=== PATIENT | male | born 1935 | race African-American/Black ===

== ENCOUNTER 2017-02-25 19:40 | Inpatient (IN) | payer OTHER ==
[~2017-02-25] VITALS: Ht 185.4 cm; Wt 72.6 kg
[2017-02-25] MEDS ORDERED: ONDANSETRON HCL 4MG/2ML VIAL IV STA (21:02)
[2017-02-25] MEDS ORDERED: ASPIRIN 81MG TABLET PO ONE (21:15)
[2017-02-25 21:37] LABS: CHLORIDE 107 mEq/L (98-107)
[2017-02-25 21:39] LABS: INR 3.5; PROTHROMBIN TIME 36.2 sec (9.4-11.6)
[2017-02-25 21:40] LABS: BASOPHILS % 0.3 % (0.0-2.0); EOSINOPHILS % 0.1 % (0.0-5.0); HEMATOCRIT. 27.4 % (42.0-52.0); HEMOGLOBIN. 9.2 g/dL (14.0-18.0); LYMPHOCYTES % 7.7 % (20.0-50.0); MEAN PLATELET VOLUME 9.7 fl (7.4-10.4); NEUTROPHILS % 85.9 % (40.0-76.0); PLATELET 81 x1000/uL (130-400); RED BLOOD CELL COUNT 2.71 mill/uL (4.7-6.1); RED CELL DISTRIBUTION WIDTH 16.7 % (11.6-14.6)
[2017-02-25 21:48] LABS: CARBON DIOXIDE 26 mEq/L (21-32); ETHANOL BLOOD < 10 mg/dL; TROPONIN I 0.04 ng/mL (0.00-0.04)
[2017-02-25] MEDS ORDERED: SODIUM CHLORIDE 0.9% 1,000 ML IV NR (22:53)
[2017-02-25 23:56] LABS: CLARITY URINE CLOUDY (CLEAR); COLOR URINE YELLOW (YELLOW); GLUCOSE URINE 2+ (NEGATIVE); KETONES URINE NEGATIVE (NEGATIVE); LEUKOCYTE ESTERASE URINE NEGATIVE (NEGATIVE); NITRITE URINE NEGATIVE (NEGATIVE); OCCULT BLOOD URINE 1+ (NEGATIVE); PROTEIN URINE 3+ (NEGATIVE); SPECIFIC GRAVITY URINE 1.015 (1.005-1.030)
[2017-02-26 00:19] LABS: *AMPHETAMINES SCREEN URINE NEGATIVE (NEGATIVE); *BARBITURATES SCREEN URINE NEGATIVE (NEGATIVE); *BENZODIAZEPINES SCREEN URINE PRESUMTIVE POSITIVE (NEGATIVE); *COCAINE SCREEN URINE NEGATIVE (NEGATIVE); CANNABINOID URINE SCREEN NEGATIVE (NEGATIVE); METHADONE URINE SCREEN NEGATIVE (NEGATIVE); OPIATES URINE SCREEN NEGATIVE (NEGATIVE); PHENCYCLIDINE URINE SCREEN NEGATIVE (NEGATIVE)
[2017-02-26] MEDS ORDERED: LEVOFLOXACIN 750MG PREMIX 150 ML IV NR (00:30)
[2017-02-26] MEDS ORDERED: SODIUM CHLORIDE 0.9% 1000ML BAG (SEPSIS BOLUS) IV ONE (00:30)
[2017-02-26 01:50] VITALS: BP 109/72
[2017-02-26] MEDS ORDERED: ONDANSETRON HCL 4MG/2ML VIAL IV PRN (04:15)
[2017-02-26] MEDS ORDERED: CLONIDINE 0.1MG TABLET PO PRN (04:15)
[2017-02-26] MEDS ORDERED: NA PHOS,M-B/NA PHOS,DI-BA ENEMA 118ML PR PRN (04:15)
[2017-02-26] MEDS ORDERED: DIPHENHYDRAMINE 50MG/ML VIAL IV PRN (04:15)
[2017-02-26] MEDS ORDERED: MAGNESIUM/ALUMINUM HYDROXIDE/SIMETHICONE 30ML UDC PO PRN (04:15)
[2017-02-26] MEDS ORDERED: GUAIFENESIN 200MG/10ML SUGAR FREE UDC PO PRN (04:15)
[2017-02-26] MEDS ORDERED: DOCUSATE SODIUM 100MG CAPSULE PO PRN (04:15)
[2017-02-26] MEDS ORDERED: LORAZEPAM 0.5MG TABLET PO PRN (04:15)
[2017-02-26] MEDS ORDERED: IPRATROPIUM/ALBUTEROL 0.5-3(2.5)MG/3ML NEB INH PRN (04:15)
[2017-02-26] MEDS ORDERED: ACETAMINOPHEN 325MG TABLET PO PRN (04:15)
[2017-02-26 04:32] VITALS: BP 125/74
[2017-02-26] MEDS: SODIUM CHLORIDE 0.45% 1,000 ML IV SCH ×2 (05:38→18:21)
[2017-02-26] MEDS ORDERED: DEXTROSE 50% WATER 50ML SYRINGE IV PRN (06:00)
[2017-02-26] MEDS: INSULIN LISPRO 100 UNITS/ML SUBCUT SCH ×4 (07:50→21:00)
[2017-02-26 08:00] VITALS: BP 149/68
[2017-02-26] MEDS: BLOOD SUGAR DIAGNOSTIC STRIP TEST SCH ×4 (08:49→21:00)
[2017-02-26] MEDS: ASPIRIN 81MG EC TABLET PO SCH (08:49)
[2017-02-26 09:08] LABS: TROPONIN I 0.05 ng/mL (0.00-0.04)
[2017-02-26 12:00] VITALS: BP 123/70
[2017-02-26] MEDS ORDERED: OMEP20TA2 PO (13:16)
[2017-02-26] MEDS ORDERED: AMIO100T4 PO (13:16)
[2017-02-26] MEDS ORDERED: MOME13HF INH (13:16)
[2017-02-26] MEDS ORDERED: FURO40TA5 PO (13:16)
[2017-02-26] MEDS ORDERED: FLUR30CA13 PO (13:16)
[2017-02-26] MEDS ORDERED: WARF5TAB73 PO (13:16)
[2017-02-26] MEDS ORDERED: BISO5TAB13 PO (13:16)
[2017-02-26] MEDS ORDERED: HYDR-4134 PO (13:16)
[2017-02-26] MEDS ORDERED: LOSA25TA12 PO (13:16)
[2017-02-26] MEDS ORDERED: METF500T4 PO (13:16)
[2017-02-26] MEDS ORDERED: METF10002 PO (13:16)
[2017-02-26] MEDS ORDERED: TERA2CAP4 PO (13:16)
[2017-02-26] MEDS ORDERED: SIMV20TA6 PO (13:16)
[2017-02-26] MEDS ORDERED: ALBU18HF2 IH (13:16)
[2017-02-26 16:00] VITALS: BP 126/71
[2017-02-26 20:00] VITALS: BP 117/65
[2017-02-27] VITALS: BP 141/77
[2017-02-27 04:00] VITALS: BP 138/78
[2017-02-27] MEDS: SODIUM CHLORIDE 0.45% 1,000 ML IV SCH (06:00)
[2017-02-27 06:21] LABS: BASOPHILS % 0.2 % (0.0-2.0); EOSINOPHILS % 2.5 % (0.0-5.0); HEMATOCRIT. 24.8 % (42.0-52.0); HEMOGLOBIN. 8.2 g/dL (14.0-18.0); LYMPHOCYTES % 17.7 % (20.0-50.0); MEAN CORPUSCULAR HEMOGLOBIN 33.2 pg (28.0-32.0); MEAN CORPUSCULAR VOLUME 100.1 fL (80.0-94.0); MEAN PLATELET VOLUME 9.5 fl (7.4-10.4); MONOCYTES % 7.3 % (2.0-8.0); NEUTROPHILS % 72.3 % (40.0-76.0); PLATELET 58 x1000/uL (130-400); RED BLOOD CELL COUNT 2.47 mill/uL (4.7-6.1); RED CELL DISTRIBUTION WIDTH 16.1 % (11.6-14.6)
[2017-02-27] MEDS: BLOOD SUGAR DIAGNOSTIC STRIP TEST SCH ×4 (06:22→21:30)
[2017-02-27 07:01] LABS: CARBON DIOXIDE 25 mEq/L (21-32); CHLORIDE 109 mEq/L (98-107); HDL CHOLESTEROL 32 mg/dL (40-59); LDL CHOLESTEROL 43 mg/dL (5-100); T4 FREE 1.91 ng/dL (0.76-1.46); TROPONIN I 0.03 ng/mL (0.00-0.04)
[2017-02-27] MEDS ORDERED: POTASSIUM CHLORIDE 20MEQ TABLET SR PO NR (07:15)
[2017-02-27] MEDS ORDERED: MAGNESIUM OXIDE 400MG TABLET PO SCH (07:15)
[2017-02-27 07:48] VITALS: BP 135/77
[2017-02-27] MEDS: INSULIN LISPRO 100 UNITS/ML SUBCUT SCH ×4 (08:20→21:00)
[2017-02-27] MEDS: ASPIRIN 81MG EC TABLET PO SCH (08:32)
[2017-02-27] MEDS ORDERED: ENOXAPARIN 40MG/0.4ML SYR SUBCUT SCH (09:00)
[2017-02-27 11:34] VITALS: BP 146/83
[2017-02-27 15:43] VITALS: BP 156/86
[2017-02-27 20:00] VITALS: BP 157/77
== END 2017-02-27 22:00 | disposition short-term general hospital (02) | DRG 308 ==
LOC: ER 20:05 → EDBEDREQ 23:18 → ENRESERV 02-26 00:04 → 6WST 02-26 02:43
PROVIDERS: ADMIT Internal Medicine; ATTEND Internal Medicine
DX: I49.5 Sick sinus syndrome (principal); N17.0 Acute kidney failure with tubular necrosis; E46 Unspecified protein-calorie malnutrition; C43.9 Malignant melanoma of skin, unspecified; R64 Cachexia; E83.42 Hypomagnesemia; E11.22 Type 2 diabetes mellitus with diabetic chronic kidney disease; I27.20 Pulmonary hypertension, unspecified; I13.0 Hypertensive heart and chronic kidney disease with heart failure and stage 1 through stage 4 chronic kidney disease, or unspecified chronic kidney disease; K21.9 Gastro-esophageal reflux disease without esophagitis; I45.9 Conduction disorder, unspecified; I50.9 Heart failure, unspecified; N18.9 Chronic kidney disease, unspecified; D50.9 Iron deficiency anemia, unspecified; E87.6 Hypokalemia; Z79.84 Long term (current) use of oral hypoglycemic drugs; Z79.899 Other long term (current) drug therapy; Z87.891 Personal history of nicotine dependence; Z88.6 Allergy status to analgesic agent; Z68.21 Body mass index [BMI] 21.0-21.9, adult
CPT/HCPCS: 36415; 70450; 71010; 80048; 80053; 80061; 80305; 81001; 82962; 83605; 83690; 83735; 83880; 84439; 84443; 84484; 85025; 85610; 87040; 93005; 93306; 96374; 96375; 97162; 97166; 99291; A6261; G0482; J1815; J1956; J2405; J7030